=== PATIENT | female | born 1955 | race Caucasian/White ===

== ENCOUNTER 2020-08-13 13:49 | Emergency (ER) | payer BC, SELFPAY ==
--- NOTE | ~2020-08-13 | XR_ITS ---
EXAMINATION: XR lumbar spine 2-3V DATE: 08/13/2020 14:20 INDICATION: Left-sided sciatica. TECHNIQUE: 3 views of lumbar spine were obtained. COMPARISON: None. FINDINGS: There is 17 degrees dextroscoliosis of thoracolumbar spine. Vertebral body heights are norm al. There is mildly decreased disc height at L2-L3 and L4-L5. There are endplate osteophytes at most levels. There is multilevel facet joint osteoarthritis. IMPRESSION: 1. Mild lumbar spondylosis. 2. Thoracolumbar dextroscoliosis. Reviewed, dictated and finalized at location A.
[2020-08-13 13:52] VITALS: BP 148/94; PULSE 87; RESP 20; TEMP 36.6; O2SAT 100
--- NOTE | 2020-08-13 14:16 | PC.NURSE ---
Pt taken to Xray
--- NOTE | 2020-08-13 14:17 | ED.BACK ---
HPI - Back Pain/Injury General Chief Complaint: Back Pain/Injury Stated Complaint: back pain Time Seen by Provider: 08/13/20 13:57 History of Present Illness HPI Narrative: Patient is a 64-year-old female who presents ER with left-sided back pain. Worsening over the last 2 to 3 days. Has some tingling across the left anterior thigh. Back pain also radiates around the left side of her head towards her groin. Pain is worse with stepping up on things, going from lying to sitting, and with directly palpating her left low back near the SI joint. She said no physical trauma or fall. 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 Related Data Allergies Allergy/AdvReac Type Severity Reaction Status Date / Time iohexol Allergy Hives Verified 08/13/20 13:51 [From contrast - CT, X-RAY] Sulfa (Sulfonamide Allergy Unknown Verified 08/13/20 13:51 Antibiotics) Review of Systems Review of Systems: All systems reviewed & are unremarkable except as noted in HPI and below Constitutional: Constitutional: Denies chills, Denies fever(s) and Denies weakness Musculoskeletal: Musculoskeletal: Reports back pain, Denies arthralgias and Denies muscle cramps Integumentary/Breasts: Skin/Breast: Denies pruritus, Denies erythema and Denies rash Neurologic: Denies focal weakness and Reports numbness PMFSH Past Medical History Medical History (Updated 08/13/20 @ 14:58 by Noah Grullon MD) Hypertension Surgical History Surgical History (Updated 08/13/20 @ 14:55 by Noah Grullon MD) H/O rectocele repair Social History Social History (Updated 08/13/20 @ 14:55 by Noah Grullon MD) Smoking status: Never smoker Exam Narrative: Exam Narrative: GENERAL: Well-appearing, well-nourished, and in no acute distress. HEAD: Normocephalic, atraumatic. CHEST: Clear to auscultation. No respiratory distress. HEART: Regular rate and rhythm. Normal peripheral pulses. EXTREMITIES: Normal range of motion. No edema. Back: No midline tenderness of the thoracic or lumbar spine. There is paraspinal tenderness of the left low back near the SI joint. No rash indicative of shingles. SKIN: Warm, dry, no rash. NEURO: Reports paresthesia of the left anterior thigh with sensation intact. Alert and oriented x3. Course Course Emergency Course: Informed of results. Discussed treatment plan including anti-inflammatories muscle relaxers. Will give small amount of of [place] to take as needed for breakthrough pain. Patient will follow up with PCP. Vital Signs Vital signs: Vital Signs Temperature 97.8 F 08/13/20 13:52 Pulse Rate 87 08/13/20 13:52 Respiratory Rate 20 08/13/20 13:52 Blood Pressure 148/94 H 08/13/20 13:52 Pulse Oximetry 100 08/13/20 13:52 Temperature 97.8 F 08/13/20 13:52 Pulse Rate 87 08/13/20 13:52 Respiratory Rate 20 08/13/20 13:52 Blood Pressure 148/94 H 08/13/20 13:52 Pulse Oximetry 100 08/13/20 13:52 MDM - Back Pain/Injury Imaging Data Radiologist's impression: ITS Impressions Lumbar Spine X-Ray 08/13/20 14:24 IMPRESSION: 1. Mild lumbar spondylosis. 2. Thoracolumbar dextroscoliosis. Discharge Plan Discharge Clinical Impression: Sciatica Patient Disposition: Home, Self-Care Condition: Stable Instructions: Sciatica (ED) Additional Instructions: Return to the ER if you have increased pain in your back, you develop lower extremity weakness/numbness/paralysis, you have numbness or tingling in your private parts, or you are unable to control your ability to urinate/stool. Prescriptions: New cyclobenzaprine 10 mg tablet 10 mg PO TID PRN (Reason: muscle spasm) Qty: 20 RF: 0 hydrocodone-acetaminophen 5-325 mg tablet 1 tablet PO Q6H PRN (Reason: pain) Qty: 10 RF: 0 naproxen 500 mg tablet 500 mg PO BID Qty: 20 RF: 0 Follow-up/Referrals: UNKNOWN,DOCTOR [Primary Care Provider] - 1 W
== END 2020-08-13 15:24 | disposition home or self-care (01) ==
PROVIDERS: Emergency Provider Emergency Medicine
DX: M54.32 Sciatica, left side (principal); I10 Essential (primary) hypertension; M47.812 Spondylosis without myelopathy or radiculopathy, cervical region
CPT/HCPCS: 72100; 99283

== ENCOUNTER 2023-02-19 10:09 | Emergency (ER) | payer MEDICARE, SELFPAY ==
[2023-02-19 10:11] VITALS: BP 151/76; PULSE 81; RESP 16; TEMP 36.3; O2SAT 100
--- NOTE | 2023-02-19 10:50 | ED.DENTAL ---
HPI - Dental/Oral General Chief complaint: Dental/Oral Stated complaint: tooth infection Time Seen by Provider: 02/19/23 10:42 History of Present Illness HPI Narrative: 67-year-old female presents to the emergency room from her dentist office for evaluation of dental pain. Patient states her dentist diagnosed her with a right upper molar dental abscess, and recommended she come to the emergency room for IV antibiotics. Patient denies any dental pain. States that she is experience some swelling and tenderness to the right side of her face. Related Data Allergies Allergy/AdvReac Type Severity Reaction Status Date / Time iohexol Allergy Hives Verified 02/19/23 10:13 [From contrast - CT, X-RAY] Sulfa (Sulfonamide Allergy Unknown Verified 02/19/23 10:13 Antibiotics) Review of Systems Review of Systems: CONSTITUTIONAL: Denies fever, chills, or sweats. EYES: Denies visual changes, redness, or discharge. ENT: Denies rhinorrhea, congestion, sore throat, or otalgia. CARDIOVASCULAR: Denies chest pain, palpitations, or edema. RESPIRATORY: Denies cough or dyspnea. GASTROINTESTINAL: Denies abdominal pain, nausea, vomiting, or diarrhea. GENITOURINARY: Denies dysuria or hematuria. SKIN: Denies rash or itching. MUSCULOSKELETAL: Denies back pain, joint pain, or myalgia. NEUROLOGIC: Denies headache, numbness, dizziness, or weakness. PSYCHIATRIC: Denies anxiety or depression. PMFSH Past Medical History Medical History Hypertension Surgical History Surgical History H/O rectocele repair Social History Social History Smoking status: Never smoker Exam Narrative: GENERAL: Well-appearing, well-nourished, no physical limitations, and in no acute distress. HEAD: Normocephalic, +TTP with mild STS to the right maxillary area EYES: Conjunctivae normal, PERRLA and EOMI. ENT: External nose normal, Nares clear, no rhinorrhea or epistaxis. Mucous membranes moist. Oropharynx without tonsillar hypertrophy exudate or other lesions. External ears normal, bilateral TMs normal bilaterally. No dental tenderness or abscess noted to the gingiva. Mild erythematous gingiva surrounding right upper molar CHEST: Clear to auscultation. No respiratory distress. No wheezes rales or rhonchi. HEART: Regular rate and rhythm. No murmur heard. Normal peripheral pulses. EXTREMITIES: Normal range of motion. No edema. No clubbing or cyanosis SKIN: Warm, dry, no rash. No noted wounds NEURO: No focal deficits. Alert and oriented x3. MAEW. CN's II-XI intact bilaterally, normal gait PSYCH: Cooperative. Normal mood and affect. Course Vital Signs Vital signs: Vital Signs Temperature 36.3 C L 02/19/23 10:11 Pulse Rate 81 02/19/23 10:11 Respiratory Rate 16 02/19/23 10:11 Blood Pressure 151/76 H 02/19/23 10:11 Pulse Oximetry 100 02/19/23 10:11 Temperature 36.3 C L 02/19/23 10:11 Pulse Rate 81 02/19/23 10:11 Respiratory Rate 16 02/19/23 10:11 Blood Pressure 151/76 H 02/19/23 10:11 Pulse Oximetry 100 02/19/23 10:11 Discharge Plan Discharge Clinical Impression: Dental abscess Patient Disposition: Home, Self-Care Condition: Stable Instructions: Antibiotic Form, Dental Abscess (ED) Prescriptions: New clindamycin HCl 300 mg capsule 300 mg PO Q8H 10 Days Qty: 30 0RF No Action cyclobenzaprine 10 mg tablet 10 mg PO TID PRN (Reason: muscle spasm) Qty: 20 0RF hydrocodone-acetaminophen 5-325 mg tablet 1 tablet PO Q6H PRN (Reason: pain) Qty: 10 0RF naproxen 500 mg tablet 500 mg PO BID Qty: 20 0RF Follow-up/Referrals: UNKNOWN,DOCTOR [Primary Care Provider] - Time of Disposition: 10:49
[2023-02-19] MEDS: CLINDAMYCIN 600 MG/D5W 50 ML 600 MG/50 ML PIGGYBACK 100 MG IVPB (11:00)
[2023-02-19 11:30] VITALS: BP 131/72; PULSE 84; RESP 16; O2SAT 97
== END 2023-02-19 11:45 | disposition home or self-care (01) ==
LOC: ANHED 11:13
PROVIDERS: Emergency Provider Nurse Practitioner Family
DX: K04.7 Periapical abscess without sinus (principal); I10 Essential (primary) hypertension
CPT/HCPCS: 96365; 99284